=== PATIENT | female | born 1970 | race Two or more races ===

== ENCOUNTER 2021-02-28 09:50 | Emergency (ER) | payer OTHER ==
[~2021-02-28] VITALS: Ht 172.7 cm; Wt 78.5 kg
[2021-02-28] MEDS ORDERED: LIPITOR20 MG PO (10:06)
[2021-02-28] MEDS ORDERED: VISTARIL50 MG PO (15:44)
== END 2021-02-28 16:05 ==
LOC: ER 09:50
DX: F41.0 Panic disorder [episodic paroxysmal anxiety] (principal); G44.209 Tension-type headache, unspecified, not intractable; E78.5 Hyperlipidemia, unspecified; Z20.822 Contact with and (suspected) exposure to COVID-19